=== PATIENT | male | born 2000 | race Hispanic/Latino ===

== ENCOUNTER 2024-09-06 17:10 | Emergency (ER) | payer OTHER, SELFPAY ==
[2024-09-06 17:36] VITALS: BP 139/100; PULSE 67; RESP 16; TEMP 36.6; O2SAT 96; BMI 23.7
== END 2024-09-06 19:32 | disposition left against medical advice (07) ==
PROVIDERS: Emergency Provider Emergency Medicine
CPT/HCPCS: 99281